=== PATIENT | female | born 1960 | race Two or more races ===

== ENCOUNTER → 2017-07-23 | Outpatient (CLI) | payer SELFPAY ==
[~2017-07-23] VITALS: Ht 165.1 cm; Wt 90.7 kg
== END | disposition home or self-care (01) ==
LOC: Rad HDHVI 14:33
PROVIDERS: ATTEND Internal Medicine
DX: E78.00 Pure hypercholesterolemia, unspecified (principal)
CPT/HCPCS: 78452; 93017; 96374; A9500